=== PATIENT | male | born 1960 | race Caucasian/White ===

== ENCOUNTER 2018-03-06 10:00 | Outpatient (RCR) | payer OTHER, SELFPAY ==
--- NOTE | 2018-02-25 11:43 | HP.PTEVAL_ITS ---
Patient's Visit Information VIC BAGLEY is a 57 year old M referred to Physical Therapy by Carolyn Julian with a diagnosis of Neck pain and R UE weakness.. Date of Evaluation: 02/25/18 Physical Therapist: Vadim Montana DPT, [place] - Visit Plan Frequency: 3x /Week Duration: 4 Weeks Plan: 3x/week through 03/20/18(c-9) for. 1. STM to scap and cervical muscles( first two weeks). 2. Tens and mist heat(pt has TENS unit he will bring for instruction adn pads). 3. AROM to UE and scap and neck to tolerance. 4. Strength ex for posture and neck/scapula mm to tolerance - Subjective Subjective: Goes by Tl. Neck pain around C5 and down R arm, B arm numbness and weak B UE. Driving makes him worse. Initial injury in using a wrench. fused c5/6 in which helped. Started getting worse a year later. Las t two years has been hard to sleep. Now lying on couch on side or grabbing something with two arms and squeezing gives dagger feeling in ribs. Doctor wants another MRI but wants PT first. Sleep3-4 hours at a time. Did road work and factories. Permanently diabled since . Doesn't do much at home, no regular ex. Live alone, Does basic ADLs best he can, has help every two weeks. - Pain neck pain Pain Intensity (Out of 10): 7 Pain Intensity Range: 6, 10 - Objective R rot 40 and L rot 30, pain in middle, ext is 40 degrees All ellicit pain, SB is 10 degrees. Pt very hesitant to move without sharp pains but everything make him worse. When I ask him to lift his arms, he looks at me like I asked him to clomb [employer]. UE AROM is hesitant but WNL, elevation and IR are especially hesitant, c/o pain in scapula. Elbows and wrists ROM WFL. strength is 4/5 through UE without myotomal abnormalities but hesitant to contract everything. Reflexes 0/3 bi and tric B. Sensation WNL to gross light touch. Pt holds B scapula elevated and protracted. Mod tender throogh all upper scap and cervical muscles. Overall a generally frustrated adn painful appearance. Walks I but slow, transfers I. - c/s compression - Goals Goal 1:: Pain down to 4/10 at worst and toelrable at 50% better. Goal Time Frame: 4-6 Weeks Goal 2:: Full UE AROM without hesitation or complaints Goal Time Frame: 4-6 Weeks Goal 3:: Sleep 5 hours without interruption Goal Time Frame: 4-6 Weeks Goal 4:: I approp HEP to minimize future problems. Goal Time Frame: 4-6 Weeks - Rehabilitation Potential Physical Therapy Diagnosis: Chronic neck pain. Rehabilitation Potential: Fair - Anticipated Interventions Patient/Client Instruction: Educate patient on: Condition, Plan of Care For the Purpose of:: To decrease pain, To increase ROM Therapeutic Exercise to Include: Strength training, Postural training, Passive ROM, Active ROM For the Purpose of:: To decrease pain, To increase ROM, To increase tolerance to activity/condition/position Manual Therapy Techniques to Include: Soft tissue mobilization For the Purpose of:: To decrease pain, To improve nutrient delivery to tissue, To increase oxygenation perfusion TENS: Yes - teach with pads. Thermo therapy (hot pack): Yes For the Purpose of:: To decrease pain Thank you for the opportunity to evaluate your patient. For Medicare and Medicare HMO plans, please review the plan of care and approve it. It will need to be FAXED BACK to us at [phone] for Medicare purposes. Please let me know if there are questions or concerns regarding this plan of care. Physician Signature: Date:
--- NOTE | 2018-05-26 11:16 | HP.PT.NRP ---
HP - Discharge Summary (1) - Patient Information VIC BAGLEY was seen in my office for initial evaluation on 02/25/18. The following Plan of Care was established for this patient: Initial Frequency: 3x /Week Initial Duration: 4 Weeks - Anticipated Interventions Patient/Client Instruction: Educate patient on: Condition, Plan of Care For the Purpose of:: To decrease pain, To increase ROM Therapeutic Exercise to Include: Strength training, Postural training, Passive ROM, Active ROM For the Purpose of:: To decrease pain, To increase ROM, To increase tolerance to activity/condition/position Manual Therapy Techniques to Include: Soft tissue mobilization For the Purpose of:: To decrease pain, To improve nutrient delivery to tissue, To increase oxygenation perfusion TENS: Yes - teach with pads. Thermo therapy (hot pack): Yes For the Purpose of:: To decrease pain This patient was last seen in our office 03/06/18. Pertinent comments regarding their Physical therapy will appear below: Pt seen for 5 visits of his POC and then cancelled/noshoed for the rest of his plan. At this point, it has been over two months since last attended adn I will discontinue due to nonattendance. At this point I will be discontinuing this patient from physical therapy. I would be happy to see this patient again in the future if found appropriate by the physician. Thank you! Vadim Montana, YEFRIT, OC
== END 2018-03-06 19:00 | disposition home or self-care (01) ==
LOC: PT 10:00
PROVIDERS: Visit Provider Anesthesiology Pain Medicine
DX: M54.2 Cervicalgia (principal); R29.898 Other symptoms and signs involving the musculoskeletal system
CPT/HCPCS: 97110; 97140; 97161

== ENCOUNTER → 2018-03-18 16:12 | Outpatient (CLI) | payer OTHER, SELFPAY ==
--- NOTE | 2018-03-18 16:19 | MRI_ITS ---
STUDY: MRI CERVICAL SPINE WITHOUT CONTRAST REASON FOR EXAM: Male, 57 years old. Neck pain and bilateral arm pain with numbness since 2005. Cervical surgery in 2007. TECHNIQUE: Standardized fat and water weighted pulse sequences were obtained in the sagittal and axial planes. COMPARISON: 09/05/2014. FINDINGS: Normal foramen magnum and brainstem-cervical cord junction. Normal craniovertebral junction. Normal anterior and lateral atlantoaxial articulations. Normal odontoid process. Persistent straightening of the C-spine curve. Metallic plate with transfixing screws and disc implant causing signal distortion artifacts at C5 and C6. The vertebral bodies and posterior elements above the fusion sites are normal. C2-3: Normal endplates. Normal disc height and morphology. Moderate loss of disc hydration. No ventral extradural defect. Normal central canal and bilateral intervertebral neural foramina. C3-4: Normal endplates. Minimal bilateral posterior marginal spurs. Normal disc height and morphology. Moderate loss of disc hydration. No ventral extradural defect. Normal central canal and bilateral intervertebral neural foramina. C4-5: Anterior marginal spurs. Normal endplates. Asymmetric posterior marginal spurs, greater on the left. They have increased slightly in size. No extruded disc fragment. Normal central canal and bilateral intervertebral neural foramina. C5-6: Metallic plate with transfixing screws and disc implant causing signal distortion artifacts. Normal central canal. Normal bilateral intervertebral neural foramina. C6-7: Normal endplates. Anterior marginal spurs. Moderate disc space height narrowing. Mild asymmetry of the bilateral posterior marginal spurs. Prominent left ventral extradural defect (series 9, image 108) is suspicious for small disc extrusion. I am unable to confirm this in the sagittal view. Normal central canal and bilateral intervertebral neural foramina.. C7-T1: Normal C7 inferior endplate. Minimal anterior wedging of T1 superior endplate may be developmental. This is unchanged. Normal disc height, hydration and morphology. Normal central canal and bilateral intervertebral neural foramina. T1-T2: (Sagittal only). Normal endplates. Normal disc height, hydration and morphology. Normal central canal and bilateral intervertebral neural foramina. Normal cervical cord. Normal visualized soft tissue structures. MRI/Spine Cervical (Routine) IMPRESSION: 1. Suspicious left C6-C7 posterior disc extrusion with suspicious minimal displacement of the left C7 nerve root sleeve. There is also new moderate C6-C7 disc space height narrowing when compared to 09/05/2015. 2. Mild increase in size of the asymmetric posterior marginal spurs at C4-C5 disc level but no extruded disc fragment. 3. No other additional findings or changes when compared to 09/05/2014. Electronically Signed: Lewis Brooks MD at 9:51 EDT , Service support ,
== END ==
PROVIDERS: Visit Provider Anesthesiology Pain Medicine
DX: M54.2 Cervicalgia (principal); M79.603 Pain in arm, unspecified
CPT/HCPCS: 72141

== ENCOUNTER → 2018-04-08 14:11 | Outpatient (CLI) | payer MEDICARE, SELFPAY ==
--- NOTE | 2018-04-08 14:22 | RAD_ITS ---
STUDY: X-RAY - THORACIC SPINE REASON FOR EXAM: Male, 57 years old. Back pain TECHNIQUE: 3 view(s) of the thoracic spine were obtained. COMPARISON: None. FINDINGS: Normal kyphosis of the thoracic spine. There is no substantial scoliosis. There is multilevel endplate spondylosis of the thoracic vertebrae. Normal disc space heights. Fusion hardware of the lower cervical spine. The soft tissue structures are unremarkable. RAD/Thoracic Spine 2 Views IMPRESSION: Thoracic spondylosis. No compression fractures. Electronically Signed: Moe Rodriguez MD at 19:53 EDT , Service support ,
== END ==
PROVIDERS: Visit Provider Anesthesiology
DX: M54.6 Pain in thoracic spine (principal)
CPT/HCPCS: 72070

== ENCOUNTER → 2018-05-14 12:08 | Outpatient (CLI) | payer MEDICARE, SELFPAY ==
--- NOTE | 2018-05-14 12:35 | MRI_ITS ---
STUDY: MRI THORACIC SPINE WITHOUT CONTRAST REASON FOR EXAM: Male, 57 years old. Mid back pain TECHNIQUE: Standardized fat and water weighted pulse sequences were obtained in the sagittal and axial planes. COMPARISON: None. FINDINGS: Normal kyphosis of the thoracic spine. There is no substantial scoliosis. No evidence for acute fracture or other significant bony pathology. The disc space heights are well-maintained. There is a tiny central disc protrusion at T4-5 without significant spinal stenosis Normal visualized thoracic cord. Normal conus medullaris that terminates at T12-L1 The soft tissue structures are unremarkable. MRI/Spine Thoracic (Routine) IMPRESSION: No evidence for acute fracture or other significant bony pathology Tiny central disc protrusion at T4-5 without spinal stenosis or cord compression.. Electronically Signed: Rene Brady MD at 16:30 EDT , Service support ,
== END ==
PROVIDERS: Visit Provider Anesthesiology
DX: M51.34 Other intervertebral disc degeneration, thoracic region (principal); M51.14 Intervertebral disc disorders with radiculopathy, thoracic region
CPT/HCPCS: 72146

== ENCOUNTER → 2018-09-18 12:56 | Outpatient (CLI) | payer OTHER, SELFPAY ==
[2018-09-18 15:49] LABS: Amphetamine Urine VISTA NEGATIVE (<1000 ng/mL); Barbiturate Urine VISTA NEGATIVE (< 200 ng/mL); Benzodiazepine Urine VISTA NEGATIVE (< 200 ng/mL); Cocaine Urine VISTA NEGATIVE (< 300 ng/mL); Ecstacy Urine VISTA NEGATIVE (< 500 ng/mL); Methadone Urine VISTA NEGATIVE (< 300 ng/mL); PCP Urine VISTA NEGATIVE (< 25 ng/mL); THC Urine VISTA NEGATIVE (< 50 ng/mL); Vista UDS pH Range 5
--- OUTSIDE RECORDS SUMMARY | 2018-11-23 02:59 | XMS RPT_ITS ---
:1960 Author Organization OHIP Care Team Providers Name Role Phone Carolyn Julian Attending Unavailable Iesha, Ayman Referring Unavailable MARIA ESTHER LOVE Primary Care Unavailable Carolny Julian Attending Unavailable MARIA ESTHER LOVE Primary Care Unavailable Basali, Ayramses Referring Unavailable Carolyn Julian Attending Unavailable MARIA ESTHER LOVE Primary Care Unavailable Basali, Ayramses Referring Unavailable Navdeep, Samejovan Attending Unavailable Navdeep, Sameh Referring Unavailable MARIA ESTHER LOVE Primary Care Unavailable Navdeep, Luis Alfredo Attending Unavailable Navdeep, Luis Alfredo Referring Unavailable MARIA ESTHER LOVE Primary Care Unavailable HUSSAIN, TEETEE Admitting Unavailable HUSSAIN, TEETEE Attending Unavailable HUSSAIN, TEETEE Primary Care Unavailable HUSSAIN, TEETEE Admitting Unavailable HUSSAIN TEETEE Attending Unavailable HUSSAIN, TEETEE Primary Care Unavailable ANTHONY RODRIGUEZ Attending Unavailable JORGE NIXONA HEIKE Primary Care Unavailable ANTHONY RODRIGUEZ Admitting Unavailable ANTHONY RODRIGUEZ Attending Unavailable TEETEE NIXON Referring Unavailable TEETEE NIXON Primary Care Unavailable Teetee Nixon Admitting Unavailable Teetee Nixon Attending Unavailable Teetee Nixon Primary Care Unavailable Mahad Collins Primary Care Unavailable PROBLEMS PROBLEMS DATE TYPE CONDITION / CODE ATTENDING STATUS SOURCE 09/18/2018 Unknown M50.30 - Other BasalCarolyn moss Active [facility] cervical disc Community degeneration, Hospital unspecified cervical Repository region / M50.30(ICD-10) 05/15/2018 Principle Other specified TEETEE NIXON Active M[facility]i [facility] Diagnosis personal risk [facility] factors, not Hospital elsewhere classified Repository / Z9189(ICD-10) 05/11/2018 Principle Essential (primary) HUSSAIN, TEETEE Active [facility] Diagnosis hypertension / [facility] I10(ICD-10) Hospital Repository 05/11/2018 Secondary Pure HUSSAIN, TEETEE Active [facility] Diagnosis hypercholesterolemia [facility] , unspecified / Hospital E7800(ICD-10) Repository 05/11/2018 Secondary Encounter for HUSSAIN TEETEE Active Murali Pomeretenisha Diagnosis screening for [facility] malignant neoplasm [facility] of prostate / Repository Z125(ICD-10) 04/13/2018 Unknown M54.6 - Pain in NavdeepLuis Alfredo lanza Active [place] thoracic spine / Community M54.6(ICD-10) Hospital Repository 05/28/2018 Unknown M54.2 - Cervicalgia Carolyn Julian Active [place] / M54.2(ICD-10) [facility] Hospital Repository 06/07/2015 Admitting Abdominal aortic [facility], Active [facility] diagnosis aneurysm, without ANTHONY Thurman rupture / Repository I71.4(ICD-10) 02/16/2015 Admitting 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 UNK TYPE CODE TESTS RESULT OUT OF RANGE REFERENCE UNITS LAB L505.0075 TO BE Normal CONFIRMED Result Comment: CONFIRMATORY TESTING FOR ALL POSITIVE URINE DRUG SCREEN RESULTS WILL ONLY BE SENT OUT UPON PHYSICIAN ORDER. VISTA Urine Drug Screen methods provide only preliminary analytical test results. A more specific alternate chemical method must be used in order to obtain a confirmed analytical result. Gas chromatography/mass spectrometery (GC/MS) is the preferred confirmatory method. Clinical consideration and professional judgement should be applied to any drug of abuse test result, particularly when preliminary positive results are used. URINE TCA TESTING MUST BE ORDERED SEPARATELY. USE TEST MNEMONIC: [facility] LAB L505.5005 VISTA UDS PH 5 Normal LAB L505.5015 <1000 ng/mL AMPHETAMINES Normal NEGATIVE LAB L505.5025 < 200 ng/mL BARBITIURATES Normal NEGATIVE LAB L505.5035 < 200 ng/mL BENZODIAZIPINE Normal NEGATIVE LAB L505.5045 < 300 ng/mL COCAINE Normal NEGATIVE LAB L505.5055 < 500 ng/mL ECSTACY Normal NEGATIVE LAB L505.5065 < 300 ng/mL METHADONE Normal NEGATIVE LAB L505.5075 < 300 High ng/mL OPIATES POSITIVE LAB L505.5085 < 25 ng/mL PCP Normal NEGATIVE LAB L505.5095 < 50 ng/mL THC Normal NEGATIVE Performed By: #### L505.5000 #### [facility] [address] [place], [place], [address] MISCELLANEOUS LAB Collected: 09/18/2018 Status: F Source: [place] PROCEDURE 1:01 PM [facility] REPOSITORY Order Comment: Comments: [id number];URINE TOX; RUN LOWEST TEST Test(s) Ordered: [id number];URINE TOX; RUN LOWEST TEST TYPE CODE TESTS RESULT OUT OF RANGE REFERENCE UNITS LAB L801.1541 Normal [facility] TEST Result Comment: TEST RESULT UNITS REF INTERVAL [id number] 6+Oxycodone-Bund Amphetamines, Urine Negative ng/mL Klqrva=1817 Amphetamine test includes Amphetamine and Methamphetamine. Barbiturate Negative ng/mL Raplab=579 Benzodiazepines Negative ng/mL Suazhm=952 Cannabinoid Positive Cutoff=20 Carboxy THC GC/MS Conf 16 ng/mL Cutoff=10 Cocaine (Metabolite) Negative ng/mL Sixqsq=147 Opiates Negative ng/mL Wwxgie=084 Opiate test includes Codeine, Morphine, Hydromorphone, Hydrocodone. Oxycodone/Oxymorphone, Urine Negative ng/mL Wfftvl=679 Test includes Oxycodone and Oxymorphone Performed By: #### L801.1541 #### [facility] [address] [place], [address] HEP FUNC PANEL Collected: 06/15/2018 Status: F Source: [facility] 10:12 AM [facility] REPOSITORY TYPE CODE TESTS RESULT OUT OF RANGE REFERENCE UNITS LAB 68181399(L 10-52 Int._Unit/L OINC) Normal ALT 30 LAB 86113281(L 9-39 Int._Unit/L OINC) Normal AST 18 LAB 93504420(L 3.4-5.0 G/DL OINC) Normal Albumin Lvl 4.3 LAB 08405733(L 2.0-4.0 G/DL OINC) Normal Globulin 3.0 LAB 09648422(L 1.1-1.9 ratio OINC) Normal A/G Ratio 1.7 LAB 97217591(L 33-120 OINC) Normal Alk Phos 89 LAB 13032826(L .00-.30 mg/dL OINC) Normal Bili Direct <.05 LAB 63317823(L OINC) Normal Bili Indirect >0.6 Result Comment: No established ranges available for the Indirect Biliruben. LAB 46355540(LOINC) 0.0-1.2 mg/dL Normal Bili Total 0.6 LAB 74500721(LOINC) 6.4-8.2 gm/dL Normal Total Protein 6.9 Performed By: #### [id number] #### [facility] [employer] [address] [place], [place] [address] SPINE THORACIC Observed: 05/14/2018 Status: F Source: [place] (ROUTINE) 12:35 PM [facility] REPOSITORY [facility] Imaging Services [address] [place] [place] [address] Spine Thoracic (Routine) MR#: [id number] Acct: [id number] Name: VIC BAGLEY Rep #: [id number] : 1960 M 57 From: Rene Brady MD PCP: OUT OF TOWN DOCTOR Status: REG CLI Study: Spine Thoracic (Routine) Date of Exam: 05/14/18 Exam# [id number] Ordering Dr: Luis Alfredo Sethi MD STUDY: MRI THORACIC SPINE WITHOUT CONTRAST REASON FOR EXAM: Male, 57 years old. Mid back pain TECHNIQUE: Standardized fat and water weighted pulse sequences were obtained in the sagittal and axial planes. COMPARISON: None. FINDINGS: Normal kyphosis of the thoracic spine. There is no substantial scoliosis. No evidence for acute fracture or other significant bony pathology. The disc space heights are well-maintained. There is a tiny central disc protrusion at T4-5 without significant spinal stenosis Normal visualized thoracic cord. Normal conus medullaris that terminates at T12-L1 The soft tissue structures are unremarkable. MRI/Spine Thoracic (Routine) IMPRESSION: No evidence for acute fracture or other significant bony pathology Tiny central disc protrusion at T4-5 without spinal stenosis or cord compression.. Electronically Signed: Rene Brady MD at 16:30 EDT , Service support , CC: OUT OF TOWN DOCTOR; Luis Alfredo Sethi M.D. Cell Cleaner: Signed CMP WITH EGFR Collected: 05/11/2018 Status: F Source: [place] 6:25 PM [facility] REPOSITORY TYPE CODE TESTS RESULT OUT OF RANGE REFERENCE UNITS LAB CMP with eGFR(LOINC) CMP with eGFR Result Comment: COMPREHENSIVE METABOLIC PANEL LAB SODIUM(LOINC) 136 - 145 mmol/l SODIUM 139 LAB POTASSIUM(LOINC) 3.5 - 5.1 mmol/L POTASSIUM 4.6 LAB CHLORIDE(LOINC) 98 - 107 mmol/L CHLORIDE 104 LAB CO2(LOINC) 21.0 - mmol/L 31.0 CO2 26.5 LAB GLUCOSE(LOINC) 74 - 106 mg/dl GLUCOSE 76 LAB BUN(LOINC) 6 - 20 mg/dl BUN 13 LAB CREATININE(LOINC) 0.7 - 1.3 mg/dl CREATININE 1.1 LAB AST/SGOT(LOINC) 13 - 39 U/L AST/SGOT 18 LAB ALK PHOS(LOINC) 38 - 126 U/L ALK PHOS 68 LAB CALCIUM(LOINC) 8.6 - mg/dl 10.2 CALCIUM 9.5 LAB TOTAL PROTEIN(LOINC) 6.4 - 8.3 g/dl TOTAL PROTEIN 7.3 LAB ALBUMIN(LOINC) 3.4 - 4.8 g/dL ALBUMIN 4.5 LAB GLOBULIN(LOINC) 1.5 - 3.8 G/DL GLOBULIN 2.8 LAB A/G RATIO(LOINC) 0.9 - 1.6 A/G RATIO 1.6 LAB TOTAL BILI(LOINC) 0.0 - 1.5 mg/dl TOTAL BILI 0.6 LAB B/C RATIO(LOINC) 0 - 30 ratio B/C RATIO 12 LAB ALT/SGPT(LOINC) 10 - 40 U/L ALT/SGPT 34 LAB ANION GAP(LOINC) 10 - 20 mmol/L ANION GAP 13 LAB AGE(LOINC) years AGE 57 LAB eGFR(LOINC) 60 - 999 ML/MINUTE eGFR >60 LAB eGFR(AA)(LOINC) 60 - 999 ML/MINUTE eGFR(AA) >60 Result Comment: ACCORDING TO THE NATIONAL KIDNEY DISEASE EDUCATION PROGRAM(NKDE), A NORMAL eGFR IS A VALUE GREATER THAN OR EQUAL TO 60 ML/MIN/1.73 SQ METERS. CHRONIC KIDNEY DISEASE: <60mL/MIN/1.73 SQ METERS KIDNEY FAILURE: <15mL/MIN/1.73 SQ METERS THIS TEST SHOULD ONLY BE USED FOR PATIENTS 18 YEARS OF AGE AND OLDER. Performed By: #### [id number] #### [facility],[address] [place] [address] LIPID PROFILE Collected: 05/11/2018 Status: F Source: [facility] 6:25 PM [facility] REPOSITORY TYPE CODE TESTS RESULT OUT OF REFERENCE UNITS RANGE LAB LIPID PROFILE(LOIN C) LIPID PROFILE Result Comment: LIPID PROFILE LAB TRIGLYCERIDE(LOINC) 0 - 150 mg/dl TRIGLYCERIDE 95 LAB CHOLESTEROL(LOINC) 0 - 200 mg/dl CHOLESTEROL 115 LAB HDL(LOINC) 40 - 60 mg/dl HDL 43 LAB CHOL/HDL(LOINC) 0.0 - 5.0 CHOL/HDL 2.7 LAB LDL(LOINC) 0 - 129 mg/dl LDL 53 Performed By: #### [id number] #### [facility],[address] [place], [place] [address] PSA CANCER SCREENING Collected: 05/11/2018 Status: F Source: [place] ([id number]) 6:25 PM [facility] REPOSITORY TYPE CODE TESTS RESULT OUT OF RANGE REFERENCE UNITS LAB PSA(LOINC) 0.00 - 4.00 ng/ml PSA 0.23 Performed By: #### [id number] #### [facility],[address] [place], [place] [address] CBC Collected: 05/11/2018 Status: F Source: [place] 9:10 AM [facility] REPOSITORY TYPE CODE TESTS RESULT OUT OF RANGE REFERENCE UNITS LAB CBC(LOINC) CBC Result Comment: CBC-COMPLETE BLOOD COUNT LAB WBC(LOINC) 4.5 - 10.8 x 10EE3/UL WBC 8.1 LAB RBC(LOINC) 4.50 - x 10EE6/UL 6.00 RBC 5.54 LAB HEMOGLOBIN(LOINC 13.0 - g/dl ) 17.5 High HEMOGLOBIN 17.8 LAB HEMATOCRIT(LOINC 40.0 - % ) 52.0 High HEMATOCRIT 52.4 LAB MCV(LOINC) 81 - 98 fl MCV 95 LAB MCH(LOINC) 27 - 33 pg MCH 32 LAB MCHC(LOINC) 32 - 36 X10 3 MCHC 34 LAB RDW/CV(LOINC) 12.0 - % 15.6 RDW/CV 14.3 LAB PLATELET(LOINC) 150 - 450 x10EE3/UL PLATELET 250 LAB MPV(LOINC) 6.4 - 10.5 fl MPV 7.7 Result Comment: AUTOMATED DIFFERENTIAL LAB NEUT %(LOINC) 46.0 - 76.0 % NEUT % 71.3 LAB LYMPH %(LOINC) 20.0 - 45.0 % LYMPH % Low 18.1 LAB MONOS %(LOINC) 0.0 - 10.0 % MONOS % 7.8 LAB EO %(LOINC) 0.0 - 7.0 % EO % 1.9 LAB BASO %(LOINC) 0.0 - 2.0 % BASO % 0.9 LAB Lymph #(LOINC) 0.80 - 2.80 x10EE3/U L Lymph # 1.50 LAB Neut #(LOINC) 1.50 - 7.10 x10EE3/U L Neut # 5.80 LAB Lee #(LOINC) 0.20 - 1.00 x10EE3/U L Lee # 0.60 LAB EO #(LOINC) 0.00 - 0.50 x10EE3/U L EO # 0.20 LAB Baso #(LOINC) 0.00 - 0.10 x10EE3/U L Baso # 0.10 LAB MANUAL DIFF(LOINC) MANUAL DIFF N/A LAB MORPHOLOGY(LOINC ) MORPHOLOGY N/A Result Comment: {CD] Performed By: #### [id number] #### [facility],[address] [place], [place] [address] THORACIC SPINE 2 Observed: 04/08/2018 Status: F Source: [place] VIEWS 2:16 PM [facility] REPOSITORY [facility] Imaging Services [address] [place] [address] Thoracic Spine 2 Views MR#: [id number] Acct: [id number] Name: VIC BAGLEY Rep #: [id number] : 1960 M 57 From: Moe Rodriguez MD PCP: OUT OF TOWN DOCTOR Status: REG CLI Study: Thoracic Spine 2 Views Date of Exam: 04/08/18 Exam# [id number] Ordering Dr: Luis Alfredo Sethi MD STUDY: X-RAY - THORACIC SPINE REASON FOR EXAM: Male, 57 years old. Back pain TECHNIQUE: 3 view(s) of the thoracic spine were obtained. COMPARISON: None. FINDINGS: Normal kyphosis of the thoracic spine. There is no substantial scoliosis. There is multilevel endplate spondylosis of the thoracic vertebrae. Normal disc space heights. Fusion hardware of the lower cervical spine. The soft tissue structures are unremarkable. RAD/Thoracic Spine 2 Views IMPRESSION: Thoracic spondylosis. No compression fractures. Electronically Signed: Moe Rodriguez MD at 19:53 EDT , Service support , CC: OUT OF TOWN DOCTOR; Luis Alfredo Sethi M.D. Cell Cleaner: Signed SPINE CERVICAL Observed: 03/18/2018 Status: F Source: [place] (ROUTINE) 4:20 PM [facility] REPOSITORY [facility] Imaging Services [address] [place] [place] [address] Spine Cervical (Routine) MR#: [id number] Acct: [id number] Name: VIC BAGLEY Rep #: [id number] : 1960 M 57 From: Lewis Brooks MD PCP: OUT OF TOWN DOCTOR Status: REG CLI Study: Spine Cervical (Routine) Date of Exam: 03/18/18 Exam# [id number] Ordering Dr: Carolyn Julian MD STUDY: MRI CERVICAL SPINE WITHOUT CONTRAST REASON FOR EXAM: Male, 57 years old. Neck pain and bilateral arm pain with numbness since 2005. Cervical surgery in 2007. TECHNIQUE: Standardized fat and water weighted pulse sequences were obtained in the sagittal and axial planes. COMPARISON: 09/05/2014. FINDINGS: Normal foramen magnum and brainstem-cervical cord junction. Normal craniovertebral junction. Normal anterior and lateral atlantoaxial articulations. Normal odontoid process. Persistent straightening of the C-spine curve. Metallic plate with transfixing screws and disc implant causing signal distortion artifacts at C5 and C6. The vertebral bodies and posterior elements above the fusion sites are normal. C2-3: Normal endplates. Normal disc height and morphology. Moderate loss of disc hydration. No ventral extradural defect. Normal central canal and bilateral intervertebral neural foramina. C3-4: Normal endplates. Minimal bilateral posterior marginal spurs. Normal disc height and morphology. Moderate loss of disc hydration. No ventral extradural defect. Normal central canal and bilateral intervertebral neural foramina. C4-5: Anterior marginal spurs. Normal endplates. Asymmetric posterior marginal spurs, greater on the left. They have increased slightly in size. No extruded disc fragment. Normal central canal and bilateral intervertebral neural foramina. C5-6: Metallic plate with transfixing screws and disc implant causing signal distortion artifacts. Normal central canal. Normal bilateral intervertebral neural foramina. C6-7: Normal endplates. Anterior marginal spurs. Moderate disc space height narrowing. Mild asymmetry of the bilateral posterior marginal spurs. Prominent left ventral extradural defect (series 9, image 108) is suspicious for small disc extrusion. I am unable to confirm this in the sagittal view. Normal central canal and bilateral intervertebral neural foramina.. C7-T1: Normal C7 inferior endplate. Minimal anterior wedging of T1 superior endplate may be developmental. This is unchanged. Normal disc height, hydration and morphology. Normal central canal and bilateral intervertebral neural foramina. T1-T2: (Sagittal only). Normal endplates. Normal disc height, hydration and morphology. Normal central canal and bilateral intervertebral neural foramina. Normal cervical cord. Normal visualized soft tissue structures. MRI/Spine Cervical (Routine) IMPRESSION: 1. Suspicious left C6-C7 posterior disc extrusion with suspicious minimal displacement of the left C7 nerve root sleeve. There is also new moderate C6-C7 disc space height narrowing when compared to 09/05/2015. 2. Mild increase in size of the asymmetric posterior marginal spurs at C4-C5 disc level but no extruded disc fragment. 3. No other additional findings or changes when compared to 09/05/2014. Electronically Signed: Lewis Brooks MD at 9:51 EDT , Service support , CC: Carolyn Julian MD; OUT OF TOWN DOCTOR Cell Cleaner: Signed INITAL EVALUATION (1) Observed: 02/26/2018 Status: F Source: [facility] 9:14 AM [facility] REPOSITORY [facility] Physical Therapy [facility] [address] [place] [address]. [address] [place] [address] Fax REHABILITATION SERVICES INITIAL EVALUATION MR#: [id number] Acct: [id number] Name: VIC BAGLEY Rep #: [id number] : 1960 57 From: Vadim Montana DPT, OCS, CSCS Referring Dr.: Carolyn Julian MD Status: REG RCR Insurance: [facility] [employer] SELF PAY INSURANCE Patient's Visit Information VIC BAGLEY is a 57 year old M referred to Physical Therapy by Carolyn Julian with a diagnosis of Neck pain and R UE weakness.. Date of Evaluation: 02/25/18 Physical Therapist: Vadim Montana DPT, OC - Visit Plan Frequency: 3x /Week Duration: 4 Weeks Plan: 3x/week through 03/20/18(c-9) for. 1. STM to scap and cervical muscles(first two weeks). 2. Tens and mist heat(pt has TENS unit he will bring for instruction adn pads). 3. AROM to UE and scap and neck to tolerance. 4. Strength ex for posture and neck/scapula mm to tolerance - Subjective Subjective: Goes by Tl. Neck pain around C5 and down R arm, B arm numbness and weak B UE. Driving makes him worse. Initial injury in using a wrench. fused c5/6 in which helped. Started getting worse a year later. Las t two years has been hard to sleep. Now lying on couch on side or grabbing something with two arms and squeezing gives dagger feeling in ribs. Doctor wants another MRI but wants PT first. Sleep3- 4 hours at a time. Did road work and factories. Permanently diabled since . Doesn't do much at home, no regular ex. Live alone, Does basic ADLs best he can, has help every two weeks. - Pain neck pain Pain Intensity (Out of 10): 7 Pain Intensity Range: 6, 10 - Objective R rot 40 and L rot 30, pain in middle, ext is 40 degrees All ellicit pain, SB is 10 degrees. Pt very hesitant to move without sharp pains but everything make him worse. When I ask him to lift his arms, he looks at me like I asked him to [place]. UE AROM is hesitant but WNL, elevation and IR are especially hesitant, c/o pain in scapula. Elbows and wrists ROM WFL. strength is 4/5 through UE without myotomal abnormalities but hesitant to contract everything. Reflexes 0/3 bi and tric B. Sensation WNL to gross light touch. Pt holds B scapula elevated and protracted. Mod tender throogh all upper scap and cervical muscles. Overall a generally frustrated adn painful appearance. Walks I but slow, transfers I. - c/s compression - Goals Goal 1:: Pain down to 4/10 at worst and toelrable at 50% better. Goal Time Frame: 4-6 Weeks Goal 2:: Full UE AROM without hesitation or complaints Goal Time Frame: 4-6 Weeks Goal 3:: Sleep 5 hours without interruption Goal Time Frame: 4-6 Weeks Goal 4:: I approp HEP to minimize future problems. Goal Time Frame: 4-6 Weeks - Rehabilitation Potential Physical Therapy Diagnosis: Chronic neck pain. Rehabilitation Potential: Fair - Anticipated Interventions Patient/Client Instruction: Educate patient on: Condition, Plan of Care For the Purpose of:: To decrease pain, To increase ROM Therapeutic Exercise to Include: Strength training, Postural training, Passive ROM, Active ROM For the Purpose of:: To decrease pain, To increase ROM, To increase tolerance to activity/condition/position Manual Therapy Techniques to Include: Soft tissue mobilization For the Purpose of:: To decrease pain, To improve nutrient delivery to tissue, To increase oxygenation perfusion TENS: Yes - teach with pads. Thermo therapy (hot pack): Yes For the Purpose of:: To decrease pain Thank you for the opportunity to evaluate your patient. For Medicare and Medicare HMO plans, please review the plan of care and approve it. It will need to be FAXED BACK to us at [phone] for Medicare purposes. Please let me know if there are questions or concerns regarding this plan of care. Physician Signature: Date: <Electronically signed by Vadim Montana DPT, OCS, CSCS> 02/26/18 0914 CC: Carolyn Julian MD; OUT OF TOWN DOCTOR EBG Signed For Medicare only, by signing this I certify the plan of care. Physicians Signature Date ALLERGIES ALLERGIES DATE TYPE / CODE NAME / CODE REACTION SEVERITY SOURCE 02/15/[address]: IODINATED Rash Low [facility] Class/66250 CONTRAST- ORAL Repository 1003(SNOMED AND IV DYE CT) 02/15/2015 DRUG CODEINE Nausea Med [facility] INGREDI/419 Repository 720961(SNOM ED CT) 02/15/2015 Drug IODINATED Rash Low [facility] Class/50592 CONTRAST- ORAL Repository 1003(SNOMED AND IV DYE CT) 02/12/2015 Drug Iodinated Other Unknown [facility] Allergy/416 Contrast- Oral [facility] 510230(SNOM and IV Repository ED CT) Dye/[id number](R XNORM) 02/12/2015 Drug codeine/[id number] Other Unknown [facility] Allergy/416 50(RXNORM) Hospital 131032(SNOM Repository ED CT) Drug/293054 codeine Nausea Mandaen 003([facility]OMED [facility] Repository Drug/856014 Contrast Dye HIVES Mandaen 003(SNOMED [facility] Repository Drug CODEINE/41465881 [facility]/416 (RXNORM) ([facility] 375877(SNOM Modifier) Repository ED CT) (Qualifier Value) ENCOUNTERS ENCOUNTERS ADMIT/DISCHARGE ACCOUNT NUMBER ADMITTING ENCOUNTER LOCATION SOURCE CLASS 09/18/2018 [id number] Ambulatory [facility] ding:LAB Repository 06/15/2018/06/15/20 [id number] [facility] [address] [place] [address] ding:.[facility] Repository 06/15/[id number] [facility]/15[facility]2018 [id number] 05[facility]14/2018 [id number] Ambulatory [facility] ding:MRI Repository 05/11/2018/05/11/[id number] Repository 04/08/2018 [id number] Ambulatory [facility] ding:RAD Repository 03/18/2018 [id number] Ambulatory [facility] ding:MRI Repository 03/06/2018/03/06/20 [id number] Ambulatory [address] ding:PT Repository 10/28/2017/10/28/19 [id number] MICHAEL, Ambulatory Building[facility] [facility] 10/02/2017 [id number] Ambulatory Building[facility] PAYERS PAYERS ENCOUNTER GUARANTOR PAYER SUBSCRIBER SOURCE 09/18/2018 VIC Prasad Primary Insurance:[facility] VIC Prasad [address]: [facility] [id number] Number: Repository [place] [id number]: [id number] Date: () [address] [address]JS: 09/18/2018 Secondary NOT [facility] Insurance:SELF PAY [facility] Number: Effective Repository Date:2018-09-18 06/15/2018 [facility] Insurance:MedicarePoli MIDDLETONDOB: [facility] N cy Number: Effective [id number] [facility] SPRING Date:2018-06-15 [facility] [id number], [place] Name:CD:[id number] [address]Btd: [id number], [place] [address]Mvz: [id number]: [phone] ([phone] (HP) (WP) 06/15/2018 [facility] Insurance:[facility]: [facility] N cy Number: [id number] Repository [place] [id number] N [facility], Date:Plan Name:[facility] [id number]: [id number]: (HP) (HP) 06/15/2018 Secondary [employer]IC [employer] Insurance:MedicarePoli MIDDLETONDOB: [facility] cy Number: [id number] Repository [id number] N [place] Date:Plan Name:Sydney [facility]ICOEUGEN[place] [id number]: (HP) 05/15/2018 VIC C Primary Insurance:500 VIC Bose [facility] MEDICARE MIDDLETONDOB: [facility] N OUTPATIENTPolic [id number] [facility] Number: 0 CTY [facility], [id number] [address] [place] [address]Sym: Date: De [id number] (HP) 05/14/2018 VIC C Primary VIC Gar [id number] N Insurance:MEDICARE MIDDLETONDOB: [facility] PART A BPolicy Number: [id number] [facility], [id number] Repository [place] [address]Gxo: Date:2018-05-08 (HP) 05/14/2018 Secondary [facility]:SELF PAY [facility] Number: Effective Repository Date:2018-05-08 05/11/2018 VIC C Primary VIC Bose [facility]: Insurance:MEDICARE MIDDLETONDOB: [facility] N RECURRING REFERENCE [id number] [facility]Pol[facility] Number: N [place] Repository [facility], [id number], [place] [address]Mxd: Date:Plan Name:[facility] [phone] (HP) 04/08/2018 VIC C Primary VIC Gar [id number] N Insurance:MEDICARE [facility]: [facility] PART A BPolicy Number: [id number] [facility], [id number] Repository [place] [address]Tlb: Date:2018-04-08 (HP) 04/08/2018 Secondary NOT GIVENUNK [place] Insurance:SELF PAY [facility] Number: Effective Repository Date:2018-04-08 03/18/2018 VIC Prasad Primary Insurance:OB [place]asad [place] [id number] N [facility] [id number] [facility]aw[facility], Number: Repository [place] [address]Gks: [id number] Date: (HP) [address], [place] [address]MU: 03/18/2018 Secondary NOT GIVENUNK [place] Insurance:SELF PAY [facility] Number: Effective Repository Date:2018-03-12 03/06/2018 Vic Prasad Primary Insurance:OB Vic Dasilvaoster [id number] N [facility]ALTH [facility]: [facility] [id number] [facility], Number: Repository [place] [address]Wyt: [id number] Date: (HP) [address], [place] [address]PW: 03/06/2018 Secondary NOT GIVENUNK [place] Insurance:SELF PAY [facility] Number: Effective Repository Date:2018-02-16 10/28/2017 VIC Prasad Primary VIC Prasad [facility]: Insurance:[facility]: Three Repository cy Number: [id number] [place] [id number] [facility] Date:8905-18-79PAW J15 [facility], ID PART A [facility] [place], [place] [address]Mlj: [id number]: [phone] [id number] [place] [phone] () [phone]: [phone] 10/02/2017 VIC Prasad Primary VIC Prasad [facility]: Insurance:MEDICAREPoli MIDDLETONDOB: [facility] Repository [id number] cy Number: [id number] [place] [id number] [address] ST[address]ETLOUDON[address]IL Date:2623-76-74NKV J15 [place]LOUDONVJ[place] ID PART A [place]O [place], [place] [address]Orj: [phone]: [phone] [id number], [place] [phone] () [phone]: [phone]
== END ==
PROVIDERS: Referring Provider Anesthesiology Pain Medicine; Visit Provider Anesthesiology Pain Medicine
DX: M50.30 Other cervical disc degeneration, unspecified cervical region (principal); S23.3XXA Sprain of ligaments of thoracic spine, initial encounter; S13.4XXA Sprain of ligaments of cervical spine, initial encounter; M47.812 Spondylosis without myelopathy or radiculopathy, cervical region
CPT/HCPCS: 80307

== ENCOUNTER → 2018-10-27 11:41 | Outpatient (CLI) | payer OTHER, SELFPAY ==
--- NOTE | 2018-10-27 11:43 | RAD_ITS ---
STUDY: X-RAY - CERVICAL SPINE REASON FOR EXAM: Male, 58 years old. Neck pain TECHNIQUE: 4 view(s) of the cervical spine were obtained. COMPARISON: None FINDINGS: Normal anterior atlantoaxial articulation. Normal odontoid process. There is straightening of the normal cervical lordosis. There is anterior fusion of the C5 and C6 vertebrae with a disc spacer noted at the C5-6 level. C7 is not clearly seen. There is mild narrowing of the C4-5 disc space. The soft tissue structures are unremarkable. RAD/Cerv Spine 4 or 5 Views IMPRESSION: Status post anterior cervical fusion changes at the C5-6 level. A C5-6 disc spacers present. There is mild narrowing of the C4-5 disc space. C7 is not clearly seen. There is straightening of the normal cervical lordosis which may be positional in nature or due to muscular spasm. Electronically Signed: Dalton Porras MD at 20:55 EST , Service support ,
== END ==
PROVIDERS: Referring Provider Orthopaedic Surgery; Visit Provider Orthopaedic Surgery
DX: M50.30 Other cervical disc degeneration, unspecified cervical region (principal)
CPT/HCPCS: 72050

== ENCOUNTER → 2019-05-17 12:00 | Outpatient (CLI) | payer MEDICARE, SELFPAY ==
[2018-10-27 12:14] VITALS: BMI 29.3
[2019-05-17 13:25] LABS: Amphetamine Urine VISTA NEGATIVE (<1000 ng/mL); Barbiturate Urine VISTA NEGATIVE (< 200 ng/mL); Benzodiazepine Urine VISTA NEGATIVE (< 200 ng/mL); Cocaine Urine VISTA NEGATIVE (< 300 ng/mL); Ecstacy Urine VISTA NEGATIVE (< 500 ng/mL); Methadone Urine VISTA NEGATIVE (< 300 ng/mL); PCP Urine VISTA NEGATIVE (< 25 ng/mL); THC Urine VISTA POSITIVE (< 50 ng/mL); Vista UDS pH Range 5
== END ==
PROVIDERS: Referring Provider Anesthesiology Pain Medicine; Visit Provider Anesthesiology Pain Medicine
DX: F11.20 Opioid dependence, uncomplicated (principal)
CPT/HCPCS: 80307

== ENCOUNTER → 2020-02-02 11:20 | Outpatient (CLI) | payer OTHER, SELFPAY ==
[2018-10-27 12:14] VITALS: BMI 29.3
[2020-02-02 13:06] LABS: Amphetamine Urine VISTA NEGATIVE (<1000 ng/mL); Barbiturate Urine VISTA NEGATIVE (< 200 ng/mL); Benzodiazepine Urine VISTA NEGATIVE (< 200 ng/mL); Cocaine Urine VISTA NEGATIVE (< 300 ng/mL); Ecstacy Urine VISTA NEGATIVE (< 500 ng/mL); Methadone Urine VISTA NEGATIVE (< 300 ng/mL); PCP Urine VISTA NEGATIVE (< 25 ng/mL); THC Urine VISTA POSITIVE (< 50 ng/mL); Vista UDS pH Range 5
== END ==
PROVIDERS: Referring Provider Anesthesiology Pain Medicine; Visit Provider Anesthesiology Pain Medicine
DX: F11.20 Opioid dependence, uncomplicated (principal)
CPT/HCPCS: 80307

== ENCOUNTER → 2021-03-08 12:10 | Outpatient (CLI) | payer OTHER, SELFPAY ==
--- NOTE | 2021-03-08 12:18 | MRI_ITS ---
STUDY: MRI CERVICAL SPINE WITHOUT CONTRAST REASON FOR EXAM: Male, 60 years old. NECK PAIN INTO R SHOULDER/ARM TECHNIQUE: Standardized fat and water weighted pulse sequences were obtained in the sagittal and axial planes. COMPARISON: 03/18/2018 FINDINGS: Normal foramen magnum and brainstem-cervical cord junction. Normal craniovertebral junction. Normal anterior atlantoaxial articulation. Normal odontoid process. There is straightening of the normal cervical lordosis. Normal vertebral bodies and posterior osseous elements. C2-3: Normal endplates. Normal disc height, signal and morphology. Normal central canal and intervertebral neural foramina. C3-4: No change in the moderate bilobed disc osteophyte complex and bilateral vertebral hypertrophy which produces moderate spinal stenosis with abutment of the left hemicord and mild bilateral neural foraminal stenosis. C4-5: Interval development of 2 mm retrolisthesis of C4 on C5 with a worsening broad disc osteophyte complex which produces worsening moderate spinal stenosis with effacement of the CSF surrounding the spinal cord and with abutment of the left hemicord and mild bilateral neural foraminal stenosis. Associated extensive Modic type I endplate changes. C5-6: Status post anterior cervical discectomy and fusion with anatomic alignment and no spinal stenosis or neural foraminal stenosis. C6-7: No change in the moderate bilobed disc osteophyte complex which produces a moderate spinal stenosis with abutment the central spinal cord and moderate by lateral neural foraminal stenosis. C7-T1: Normal endplates. Normal disc height, signal and morphology. Normal central canal and intervertebral neural foramina. Normal cervical cord. Normal visualized soft tissue structures. MRI/Spine Cervical (Routine) IMPRESSION: Worsening degenerative disc disease at C4/C5 as described above. Electronically Signed: John Bustos MD at 15:19 EDT Tel , Service support ,
== END ==
PROVIDERS: Referring Provider Anesthesiology Pain Medicine; Visit Provider Anesthesiology Pain Medicine
DX: M47.812 Spondylosis without myelopathy or radiculopathy, cervical region (principal); M50.322 Other cervical disc degeneration at C5-C6 level
CPT/HCPCS: 72141

== ENCOUNTER → 2021-06-26 12:39 | Outpatient (CLI) | payer MEDICARE, SELFPAY ==
[2021-06-26 13:41] LABS: Amphetamine Urine VISTA NEGATIVE (<1000 ng/mL); Barbiturate Urine VISTA NEGATIVE (< 200 ng/mL); Benzodiazepine Urine VISTA NEGATIVE (< 200 ng/mL); Cocaine Urine VISTA NEGATIVE (< 300 ng/mL); Ecstacy Urine VISTA POSITIVE (< 500 ng/mL); Methadone Urine VISTA NEGATIVE (< 300 ng/mL); PCP Urine VISTA NEGATIVE (< 25 ng/mL); THC Urine VISTA POSITIVE (< 50 ng/mL); Vista UDS pH Range 5
== END ==
PROVIDERS: PCP Nurse Practitioner Family; Referring Provider Anesthesiology Pain Medicine; Visit Provider Anesthesiology Pain Medicine
DX: F11.20 Opioid dependence, uncomplicated (principal)
CPT/HCPCS: 80307

== ENCOUNTER → 2022-01-11 | Outpatient (CLI) | payer OTHER, MEDICARE, SELFPAY ==
[2022-01-11 11:39] LABS: Amphetamine Urine VISTA NEGATIVE (<1000 ng/mL); Barbiturate Urine VISTA NEGATIVE (< 200 ng/mL); Benzodiazepine Urine VISTA NEGATIVE (< 200 ng/mL); Cocaine Urine VISTA NEGATIVE (< 300 ng/mL); Ecstacy Urine VISTA NEGATIVE (< 500 ng/mL); Methadone Urine VISTA NEGATIVE (< 300 ng/mL); PCP Urine VISTA NEGATIVE (< 25 ng/mL); THC Urine VISTA NEGATIVE (< 50 ng/mL); Vista UDS pH Range 5
== END | disposition home or self-care (01) ==
LOC: LAB 11:03
PROVIDERS: PCP Nurse Practitioner Family; Referring Provider Anesthesiology Pain Medicine; Visit Provider Anesthesiology Pain Medicine
DX: M50.222 Other cervical disc displacement at C5-C6 level (principal); M47.812 Spondylosis without myelopathy or radiculopathy, cervical region; M50.322 Other cervical disc degeneration at C5-C6 level
CPT/HCPCS: 80307

== ENCOUNTER → 2022-09-03 | Outpatient (CLI) | payer OTHER, SELFPAY ==
--- NOTE | 2022-09-03 15:40 | RAD_ITS ---
EXAM: XR CERVICAL SPINE, 2 OR 3 VIEWS CLINICAL INDICATION: SPONDYLOSIS TECHNIQUE: Frontal and lateral views of the cervical spine. This report was created using uniRow report generation technology. COMPARISON: 10/27/2018 FINDINGS: VERTEBRAE: Anterior plate and screws are seen from a fusion of C5 and C6. Interbody spacer is at the C5-6 level. Preserved vertebral body height. No acute fracture. No spondylolisthesis. Preservation of the normal cervical lordosis. No significant facet arthropathy. DISC SPACES: There is increased disc space narrowing at C4-5 on today''s exam. SOFT TISSUES: Unremarkable. No prevertebral soft tissue widening. LUNG APICES: Clear. RAD/Cerv Spine 2 or 3 Views IMPRESSION: No acute osseous abnormalities. There has been a further increase of disc space narrowing at C4-5. Hardware at C5-6 from anterior fusion is in stable position. Electronically Signed: Michele Vazquez MD at 16:23 EST ,
== END | disposition home or self-care (01) ==
LOC: RAD 15:30
PROVIDERS: PCP Nurse Practitioner Family; Referring Provider Anesthesiology Pain Medicine; Visit Provider Anesthesiology Pain Medicine
DX: S13.4XXA Sprain of ligaments of cervical spine, initial encounter (principal); M47.812 Spondylosis without myelopathy or radiculopathy, cervical region
CPT/HCPCS: 72040